=== PATIENT | male | born 1940 | race Caucasian/White ===

== ENCOUNTER 2017-03-01 18:33 | Inpatient (IN) ==
[2017-03-01] MEDS ORDERED: SODIUM CHLORIDE 0.9% 500 ML IV STA (19:39)
[2017-03-01] MEDS ORDERED: ALBUTEROL/IPRATROPIUM 3 ML NEB RESP TX STA (19:39)
[2017-03-01] MEDS ORDERED: ONDANSETRON 4 MG/2 ML VIAL IV STA (19:39)
--- NOTE | 2017-03-01 19:39 | Emergency Department Note ---
INolberto Emily, am scribing for, and in the presence of, Srinath Morillo MD 19: 30. Yisel Buchanan Charles R, MD, personally performed the services described in this documentation, ascribed by Marina Arvizu in my presence, and it is both accurate and complete 938 . Arrival - Arrival Chief Complaint: Extremity Problem Stated Complaint: leg swelling and sob ED Nursing Triage Note: Swelling to bilat lower extremities x 2 weeks - pt states that Dr Griffiths told him to come to ER for evaluation and admission Mode of Arrival: Ambulatory Limitations: No Limitations Source: Patient Time Seen by Provider: 03/01/17 19:00 - History of Present Illness HPI Narrative: Pt is a 76 y/o male who came to ED with c/o swelling in abdomen and lower extremities that started 2 weeks ago. Pt has associated sxs SOB, decreased appetite, but denies weight loss. Pt also has distended abdomen that has been ongoing for months now, per family member. Pt has myelofibrosis and was put on a new medication 2 weeks ago, when all these sxs started and Dr. Pugh added Lasix to help. However, family member notes pt's BP would drop and he would become lightheaded due to anemia. Family member reports calling Dr. Griffiths's office and was told to come to ED to get checked for admissions. Pt lives alone. Onset (ago): week(s) Consistency: constant Severity: moderate Severity scale (1-10): 7 Quality: fullness Allergies/Adverse Reactions: Allergies Allergy/AdvReac Type Severity Reaction Status Date / Time No Known Allergies Allergy Verified 11/26/14 07:37 Home Medications: Home Medications Medication Instructions Recorded Confirmed Type Furosemide Tab [Lasix Tab] 40 mg PO DAILY PRN 03/01/17 03/01/17 History Hydroxyurea 500 mg PO QAM 03/01/17 03/01/17 History Iron,Carbonyl/Ascorbic Acid 1 each PO DAILY W/SUPPER 03/01/17 03/01/17 History [Icar-C Tablet] Multivit-Min/FA/Lutein/Zeaxant 1 each PO QAM 03/01/17 03/01/17 History [Icaps Mv Tablet] Prochlorperazine Tab [Compazine 5 mg PO Q4H PRN 03/01/17 03/01/17 History Tab] Review of System - Review of System 12 point system: reviewed and no additional remarkable complaints except as stated - Review of System Constitutional: Absent: fever Respiratory: Present: respiratory distress (SOB) Cardiovascular: Present: edema (both lower etremities). Absent: chest pain Gastrointestinal: Absent: abdominal pain (distended belly), nausea, vomiting Musculoskeletal: Absent: arm pain, back pain Skin: Absent: rash Neurological: Absent: headache, numbness, confusion Medical,Surgical,& Family Hx - Medical History Other: History of: Miscellaneous Medical Problems (anemia, myelofibrosis) - Surgical History Cardiac Surgeries: Patient Denies: Femoral-Popliteal Bypass Graft, Cardiac Catheterization, Cardiac Surgery, Carotid Endarterectomy, Internal Defibrillator, Vascular Access Devices HEENT Surgeries: Patient denies: Carotid Endarterectomy Abdominal Surgeries: Patient denies: Splenectomy - Social History Smoking Status: Never smoker Frequency of Alcohol Use: None Type of Drug Use: None Marital Status: Single Lives With:: Alone Functional capacity: independent ambulation Exam Vital Signs: Vital Signs Temperature 98.7 F 03/01/17 19:34 Pulse Rate 85 03/01/17 20:05 Respiratory Rate 20 03/01/17 20:05 Blood Pressure 110/51 03/01/17 20:04 O2 Sat by Pulse Oximetry 100 03/01/17 20:05 - General General appearance: alert, in no apparent distress, other (temporal wasting; emaciated) - Head Head exam: Present: atraumatic, normocephalic - Eye Eye exam: Present: PERRL, EOMI, other (sunken orbits) - ENT ENT exam: Present: mucous membranes dry. Absent: mucous membranes moist - Neck Neck exam: Present: full ROM. Absent: tenderness - Chest Chest inspection: Present: symmetric chest wall rise. Absent: tenderness - Respiratory Respiratory exam: Present: rales. Absent: normal lung sounds bilaterally, accessory muscle use - Cardiovascular Cardiovascular exam: Present: tachycardia, normal heart sounds - Abdominal Exam Abdominal exam: Present: soft, distention (3rd spacing) - Extremities Exam Extremities exam: Present: full ROM, pedal edema (+3 in lower extremities). Absent: tenderness - Neurological Exam Neurological exam: Present: alert, oriented X3, CN II-XII intact. Absent: motor sensory deficit - Psychiatric Psychiatric exam: Present: normal affect, normal mood - Skin Skin exam: Present: warm, dry, pallor. Absent: normal color Results - Labs CBC & BMP: 03/01/17 19:43 03/01/17 19:43 Lab Results: I have reviewed the patients labs Labs: Laboratory Tests 03/01/17 19:43 WBC 25.5 H RBC 2.25 L Hgb 6.1 L* Hct 20.0 L MCHC 30.5 L RDW 22.9 H Plt Count 25 L* Lymph % (Auto) 9.6 L Tripp % (Auto) 18.8 H Neut # (Auto) 13.1 H Tripp # (Auto) 4.8 H Laboratory Tests 03/01/17 19:43 Sodium 139 Potassium 3.4 L Chloride 101 Carbon Dioxide 30 Creatinine 1.00 GFR Calculation 76 BUN/Creatinine Ratio 15.00 Calcium 8.3 L Total Bilirubin 2.10 H AST 54 H Alkaline Phosphatase 125 H Troponin I < 0.015 Albumin 3.3 L Globulin 3.8 H Albumin/Globulin Ratio 0.8 L Lipase 262.0 Laboratory Tests 03/01/17 19:43 B-Natriuretic Peptide 147 H Laboratory Tests 03/01/17 19:43 Urine Color Yellow Urine Appearance Clear Urine pH 7.0 Ur Specific [place] 1.008 Urine Protein 30 Urine Blood Negative Urine Nitrate Negative Urine Urobilinogen < 2.0 H Urine Leukocytes Negative Urine RBC 3 Laboratory Tests 03/01/17 19:43 Total Counted 100 Segmented Neutrophils 76 Band Neutrophils 1 Lymphocytes 14 L Monocytes 4 Metamyelocytes 2 Myelocytes 3 Nucleated RBCs 1 Platelet Estimate Decreased Hypochromasia 1+ Microcytosis 1+ - Diagnostic Findings Procedure: Abdominal x-ray: report reviewed by me (Ascites cannot be excluded. Bony changes of the pelvis.), Chest x-ray: report reviewed by me (Bilateral basilar atelectasis. Left-sided pleural effusion.), Ultrasound: report reviewed by me (Venous Doppler of LE BI: 1. No evidence of DVT seen in either lower extremity. 2. Small left Newman's cyst.) Critical Care Time Critical Care Time: Yes Total Critical Care Time: 60 (minutes) Disposition Clinical Impression: Lower extremity edema, Anemia of chronic disease, Splenomegaly, Hyperbilirubinemia, Myelodysplastic disease, Generalized weakness, Ascites Case discussed with: patient, patient's family Disposition: Still a Patient Condition: Stable Time of Disposition: 22:41
[2017-03-01 20:17] LABS: Basophils # 0.2 10*3/uL (0.0-0.2); Basophils % 0.7 % (0.0-0.8); Eosinophils % 0.1 % (0.00-10.9); Immature Granulocytes % 19.5 %; Immature Granulocytes Absolute 4.96 #; Lymphocytes # 2.4 10*3/uL (1.4-4.0); Lymphocytes % 9.6 % (21.2-54.2); Mean Corpuscular HGB Conc 30.5 GM/DL (32-36); Mean Corpuscular Hemoglobin 27 PG (27-34); Mean Corpuscular Volume 88.9 FL (87-102); Monocytes # 4.8 10*3/uL (0.11-0.8); Monocytes % 18.8 % (1.7-12.7); NRBC # 1.54 10*3/uL; Neutrophils # 13.1 10*3/uL (1.4-7.4); Neutrophils % 51.3 % (38.7-73.9); Red Blood Count 2.25 MC/CUMM (3.8-5.5); Red Cell Distribution Width 22.9 % (9.3-17.3); White Blood Count 25.5 T/CUMM (4-12)
[2017-03-01 20:23] LABS: INR 1.1; PT Patient Result 11.8 SECS
[2017-03-01 20:24] LABS: Hemoglobin 6.1 GM/DL (14.0-18.0); Platelet Count 25 T/CUMM (130-400)
[2017-03-01 20:27] LABS: Alanine Aminotransferase 30 U/L (16-61); Albumin 3.3 G/DL (3.4-5.0); Alkaline Phosphatase 125 U/L (45-117); Amylase 66 U/L (25-115); Aspartate Amino Transferase 54 U/L (0-37); Blood Urea Nitrogen 15 MG/DL (7-18); Calcium 8.3 MG/DL (8.5-10.1); Glucose 87 MG/DL (74-106); Osmolality,Calculated 276.5 MOS/KG (273-304); Potassium 3.4 MMOL/L (3.5-5.1); Sodium 139 MMOL/L (136-145); Total Protein 7.1 G/DL (6.4-8.3); Troponin I Only < 0.015 NG/ML (0.00-0.045)
--- NOTE | 2017-03-01 20:31 | Ultrasound Report ---
Bilateral lower extremity venous Doppler with aguirre scale, Spectral Doppler and color-flow analysis performed and interpreted. Indication: Pain and swelling. Scanning over both common femoral veins, superficial femoral veins, greater saphenous veins and popliteal veins demonstrates normal compressibility, color flow, and augmentation. There is a small Newman's cyst on the left. Impression: 1. No evidence of DVT seen in either lower extremity. 2. Small left Newman's cyst. PROCEDURE INTERPRETED AT [facility] DEPARTMENT OF RADIOLOGY Final Report Signed by: Dr. Valeria Brownlee
[2017-03-01] MEDS ORDERED: ONDANSETRON 4 MG/2 ML VIAL ONE (20:51)
--- NOTE | 2017-03-01 20:56 | XRay Report ---
2 view chest. Indication: Shortness of breath. No previous. The heart is normal in size. The pulmonary vasculature is normal. There is atelectasis present at each lung base and a small left pleural effusion. Osseous structures are unremarkable. Impression: Bilateral basilar atelectasis. Left-sided pleural effusion. PROCEDURE INTERPRETED AT [facility] [place] DEPARTMENT OF RADIOLOGY Final Report Signed by: Dr. Valeria Brownlee
--- NOTE | 2017-03-01 20:58 | EKG Report ---
Stationary ECG Study [facility] ER Test Date: 03/01/2017 8:57:43 PM Pat Name: BRONWYN RAMEY Department: Room: Gender: M Science Teacher: : 1940 Requested by: Srinath Martinez Order Number: [id number] Reading MD: KAUSHAL HARDEN Intervals [place] Rate: 88 P: 69 DC: 150 QRS: 22 QRSD: 109 T: 118 QT: 358 QTc: 404 Interpretive Statements SINUS RHYTHM WITH VENTRICULAR PREMATURE COMPLEX MODERATE INTRAVENTRICULAR CONDUCTION DELAY Electronically Signed On 03-02-17 16:37:19 CDT by KAUSHAL HARDEN [email or web address]
--- NOTE | 2017-03-01 20:58 | XRay Report ---
2 view abdomen. Indication: Abdominal swelling. Pleural effusion is seen at the left lung base, and possibly also at the right lung base, with atelectasis. Surgical clips at the GE junction and left pelvis. There is increased haziness over the abdomen. Ascites is a possibility. The bowel gas pattern is within the range of normal. There is an increased trabecular pattern and cortical thickening involving of the bones of the pelvis. This could be from patches disease, metastatic disease, or previous radiation. Impression: Ascites cannot be excluded. Bony changes of the pelvis. PROCEDURE INTERPRETED AT [facility] DEPARTMENT OF RADIOLOGY Final Report Signed by: Dr. Valeria Brownlee
[2017-03-01 21:28] LABS: Apearance,Urine CLEAR (Clear); Bilirubin,Urine Negative (Negative); Blood, Urine Negative (Negative); Glucose,Urine (UA) Negative (Negative); Ketones,Urine Negative (Negative); Nitrite,Urine Negative (Negative); Protein,Urine 30 MG/DL; RBC,Urine 3 /HPF (0-4); Urine Color Yellow (Yellow); Urine Specific Gravity 1.008 (1.001-1.035); Urine Urobilinogen < 2.0 EU/DL (0.2-1.0)
[2017-03-01 22:19] LABS: Band Neutrophils 1 % (0-10); Hypochromasia 1+; Lymphocytes 14 % (20-55); Metamyelocytes 2 %; Microcytosis 1+; Myelocytes 3 %; Nucleated Red Blood Cells 1 (0-5); Platelet Estimate Decreased; Segmented Neutrophils 76 % (50-85); Total Cells Counted 100
[2017-03-02] MEDS ORDERED: diphenhydrAMINE CAP 25 MG CAPSULE PO PRN (00:14)
[2017-03-02] MEDS ORDERED: traMADol 50 MG TABLET PO PRN (00:14)
[2017-03-02] MEDS ORDERED: SODIUM CHLORIDE 0.9% 1,000 ML IV SCH (00:14)
[2017-03-02] MEDS ORDERED: chlorproMAZINE INJ 25 MG in SODIUM CHLORIDE 0.9% 100 ML IV PRN (00:14)
[2017-03-02] MEDS ORDERED: ALUMINUM/MAGNES/SIMETH MAX STR 30 ML UDCUP PO PRN (00:14)
[2017-03-02] MEDS ORDERED: guaiFENesin 200 MG/10 ML UDCUP PO PRN (00:14)
[2017-03-02] MEDS ORDERED: ACETAMINOPHEN 325 MG TABLET PO PRN (00:14)
[2017-03-02] MEDS ORDERED: chlorproMAZINE 25 MG TABLET PO PRN (00:14)
[2017-03-02] MEDS ORDERED: SODIUM CHLORIDE 0.9% 250 ML IV PRN ×2 (00:14→07:49)
[2017-03-02] MEDS ORDERED: PROMETHAZINE INJ 25 MG in SODIUM CHLORIDE 0.9% 50 ML IV PRN (00:14)
[2017-03-02] MEDS ORDERED: MYLANTA/LIDO VISC 2:1 300 ML BOTTLE SWISH/SPIT PRN (00:14)
[2017-03-02] MEDS ORDERED: MAGNESIUM HYDROXIDE SUSP 30 ML UDCUP PO PRN (00:14)
[2017-03-02] MEDS ORDERED: LOPERAMIDE 2 MG CAPSULE PO PRN ×2 (00:14)
[2017-03-02] MEDS ORDERED: chlorproMAZINE INJ 50 MG in SODIUM CHLORIDE 0.9% 100 ML IV PRN (00:14)
[2017-03-02] MEDS ORDERED: PROCHLORPERAZINE 5 MG TABLET PO PRN (00:14)
[2017-03-02] MEDS ORDERED: BENZTROPINE 2 MG/2 ML AMP IV PRN (00:14)
[2017-03-02] MEDS ORDERED: ALBUTEROL/IPRATROPIUM 3 ML NEB RESP TX PRN (00:14)
[2017-03-02] MEDS ORDERED: TEMAZEPAM 7.5 MG CAPSULE PO PRN (00:14)
[2017-03-02] MEDS ORDERED: ALPRAZolam 0.25 MG TABLET PO PRN (00:14)
[2017-03-02] MEDS ORDERED: MYLANTA/LIDO VISC 2:1 300 ML BOTTLE SWISH/SWAL PRN (00:14)
[2017-03-02] MEDS ORDERED: LACTULOSE 20 GM/30 ML UDCUP PO PRN (00:14)
[2017-03-02] MEDS ORDERED: ONDANSETRON 4 MG/2 ML VIAL IV PRN (00:14)
[2017-03-02] MEDS ORDERED: FUROSEMIDE 40 MG TABLET PO PRN (00:14)
[2017-03-02 02:16] LABS: INR 1.1; PT Patient Result 12.1 SECS
[2017-03-02 02:17] LABS: Albumin 2.9 G/DL (3.4-5.0); Bilirubin,Total 2.2 MG/DL (0.2-1.0); Calcium 8.4 MG/DL (8.5-10.1); Magnesium 2.2 MG/DL (1.8-2.4); Osmolality,Calculated 280.3 MOS/KG (273-304); Potassium 3.3 MMOL/L (3.5-5.1); Total Protein 6.3 G/DL (6.4-8.3); Uric Acid 7.5 MG/DL (3.5-7.2)
[2017-03-02 02:27] LABS: Basophils # 0.2 10*3/uL (0.0-0.2); Basophils % 0.8 % (0.0-0.8); Eosinophils % 0.1 % (0.00-10.9); Immature Granulocytes % 21.2 %; Immature Granulocytes Absolute 4.91 #; Lymphocytes # 2.6 10*3/uL (1.4-4.0); Lymphocytes % 11.1 % (21.2-54.2); Mean Corpuscular HGB Conc 30.8 GM/DL (32-36); Mean Corpuscular Hemoglobin 27 PG (27-34); Mean Corpuscular Volume 88.9 FL (87-102); Monocytes # 3.2 10*3/uL (0.11-0.8); NRBC # 1.88 10*3/uL; Neutrophils # 12.2 10*3/uL (1.4-7.4); Neutrophils % 52.8 % (38.7-73.9); Red Cell Distribution Width 23.1 % (9.3-17.3); White Blood Count 23.1 T/CUMM (4-12)
[2017-03-02 04:03] LABS: Platelet Count 22 T/CUMM (130-400)
[2017-03-02 04:06] LABS: Hemoglobin 7.4 GM/DL (14.0-18.0)
[2017-03-02 05:25] LABS: Anisocytosis 2+; Band Neutrophils 15 % (0-10); Lymphocytes 26 % (20-55); Macrocytosis 1+; Metamyelocytes 5 %; Microcytosis 1+; Myelocytes 3 %; Nucleated Red Blood Cells 5 (0-5); Platelet Estimate Decreased; Polychromasia 2+; Segmented Neutrophils 34 % (50-85); Total Cells Counted 100
[2017-03-02] MEDS ORDERED: FUROSEMIDE 20 MG/2 ML VIAL IV SCH (08:00)
[2017-03-02] MEDS ORDERED: HYDROXYUREA 500 MG CAPSULE PO SCH (09:00)
[2017-03-02] MEDS: PANTOPRAZOLE 40 MG VIAL IV SCH (09:47)
[2017-03-02] MEDS: MULTIVITAMIN (OCUVITE) TABLET PO SCH (09:48)
--- NOTE | 2017-03-02 10:02 | Oncology History&Physical ---
History of Present Illness Chief complaint: Severe prostration and weakness, multifactorial History of present illness: Mr. Portillo is a 76 year old male Mr. Portillo has a history of myelodysplastic syndrome first diagnosed in August 2011. He was initially treated with hydroxyurea and tested for Ricardo 2 positivity. He is Ricardo 2 positive and he has been treated with Jakafi. He did not tolerate it well and it appeared to be less effective but I really think that what happened was the patient's myelodysplastic syndrome has worsened and that he simply has been noncompliant with his medications and and he is blaming them for side effects or actually progression of disease. Lab work in my office on February 27, 2017 included a white cell count of 21,800 with an ANC of 15,100 and a hemoglobin of 8.2. His platelet count was 23,000. I have given him information on Vidaza but so far, he is has repeatedly declined to take it. I have explained to him that there is not much else to offer at this point. He has documented massive splenomegaly. He complains of increasing abdominal fullness that is in my opinion due to the splenomegaly. He has had progressive edema and I have attempted to go up on his Lasix. He is currently on 40 mg p.o. twice daily. His edema was improving but when he saw his family practitioner she sent him to the emergency room anyway. Past medical history: Allergies: No known allergies The patient has been repeatedly told to bring his medications with him and he has repeatedly failed to do so. He has known significant COPD. He also has emaciation and cachexia. He also has a history of vertigo, GERD and macular degeneration. Social history: He is at least a former smoker and I am not sure that he does not continue to smoke. Family history is negative for myelodysplastic syndrome. It is strongly positive for coronary artery disease and stroke and his father had prostate cancer. Review of systems: General: Positive for fatigue but he has had a weight gain of about 7 pounds in the last 4-6 weeks. This may be due to increase in edema however. He has not had fever. Eyes: Positive for decreased visual acuity due to macular degeneration. ENT: Negative for chronic sinusitis or upper airway infections, but positive for some generalized mild mouth irritation secondary to hydroxyurea. Pulmonary: Positive for dyspnea at rest and with exertion and positive for COPD. Negative for hemoptysis. Positive for frequent respiratory infections. Cardiovascular:Positive for vertigo but negative for myocardial infarct. The patient has had progressive confusion and may have cerebrovascular insufficiency. GI: Positive for left upper quadrant abdominal pain secondary to massive splenomegaly. Negative for chronic constipation, diarrhea or upper or lower GI bleeding. : Negative for kidney stones, kidney infections and negative for prostate disorders. Musculoskeletal: Positive for mild arthritis in the hands and back and posture for more generalized muscle weakness. Neurologic: Negative for seizures, convulsions or paralysis. He has had weak spells but I do not think they are neurologic in origin. Psychiatric: The patient does have a component of memory loss although some of his apparent memory loss is probably the patient being noncompliant. Physical examination: General: The patient is acutely and chronically ill. Eyes: Normal lids and conjunctivae. ENT: His oral mucosa and pharynx are normal. His hearing is normal. His trachea is midline. Lungs/chest: He has no chest wall pain. He has coarse breath sounds throughout his lung bhardwaj indicating fairly severe COPD with only a very slight prolongation of the expiratory phase of respiration. Cardiovascular: His heart rhythm is regular without murmur, gallop or rub. There is no jugular venous distention, clubbing, cyanosis or edema. I hear no carotid bruits. Abdomen: He has massive splenomegaly with the spleen extending to the pelvic brim and crossing the midline slightly. He is tender over this area. Musculoskeletal: His gait is unstable. He walks with a cane. Range of motion of his back appears relatively normal however. He has moderate degenerative arthritis of the extremities, particularly his hands. There is no focal muscle atrophy or bone or joint deformity. Neurologic: Cranial nerves II through XII intact. There are no focal neurologic deficits. Impression: Progressively worsening edema that is probably multifactorial including splenomegaly and liver dysfunction related to myelodysplastic syndrome. 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 Thrombocytopenia secondary to myelodysplastic syndrome. COPD. Iron deficiency. Moderate degenerative arthritis. Hypokalemia This weekend we will diurese the patient and we will correct his hypokalemia. It is my opinion that we might have been able to avoid this hospital stay if he had been more compliant but this may give us an opportunity to start him on Vidaza if he elects to take it. It is my opinion that the patient's long-term prognosis is poor. He has had long-standing myelodysplastic syndrome, probably longer than I have been following him. In addition, he has some complete compliance problems that I think are going to continue to complicate his treatment. He does not take oral medications on a regular basis. It would be possible to control this more if we do go to 5 days and since it is given parenterally. Home Medications Medication Instructions Recorded Confirmed Type Furosemide Tab [Lasix Tab] 40 mg PO DAILY PRN 03/01/17 03/02/17 History Hydroxyurea 500 mg PO QAM 03/01/17 03/02/17 History Iron,Carbonyl/Ascorbic Acid 1 each PO DAILY W/SUPPER 03/01/17 03/02/17 History [Icar-C Tablet] Multivit-Min/FA/Lutein/Zeaxant 1 each PO BID 03/01/17 03/02/17 History [Icaps Mv Tablet] Prochlorperazine Tab [Compazine 5 mg PO Q4H PRN 03/01/17 03/02/17 History Tab] Allergies Allergy/AdvReac Type Severity Reaction Status Date / Time No Known Allergies Allergy Verified 11/26/14 07:37 Medical,Surgical,& Family Hx - Medical History Other: History of: Cancer (MDS), Miscellaneous Medical Problems (anemia, myelofibrosis) - Surgical History Cardiac Surgeries: Patient Denies: Femoral-Popliteal Bypass Graft, Cardiac Catheterization, Cardiac Surgery, Carotid Endarterectomy, Internal Defibrillator, Vascular Access Devices Thoracic Surgeries: Patient denies;: Organ Transplant HEENT Surgeries: Patient denies: Carotid Endarterectomy Abdominal Surgeries: Patient denies: Splenectomy Reproductive Surgeries: Patient denies;: Genitourinary Surgery - Social History Smoking Status: Former smoker Frequency of Alcohol Use: None Type of Drug Use: None Exam - Constitutional Vitals: Period Temp Pulse Resp BP Sys/Parker Pulse Ox Last 24 Hr 97.6 F-99.1 F 83-94 18-22 93-128/50-60 94-100 Results - Labs CBC & BMP: 03/02/17 00:59 03/02/17 00:59
--- NOTE | 2017-03-02 10:36 | XRay Report ---
2 view chest. Indication: Shortness of breath. Comparison: Yesterday's exam. The heart is normal in size. Atelectasis is present in each lung base. There increasing left-sided pleural effusion. Hazy opacity over the abdomen suggests the possibility of ascites. Impression: Worsening left-sided pleural effusion. Bilateral basilar atelectasis. Suspected ascites. PROCEDURE INTERPRETED AT [facility] DEPARTMENT OF RADIOLOGY Final Report Signed by: Dr. Valeria Brownlee
--- NOTE | 2017-03-02 12:43 | ECHO Report ---
Maurilio Portillo 03/02/2017 Exam Date: 11:02 Referring Physician: nat Huber Technologist: ADIA WILL Age: 76 Ht (in): 70 Wt (lb): 139 MExam Location: [facility] Gender: Echo [id number]: Shortness of breath, Anemia, MyelofIndications:ibrosis, Edema, Apparent CHF BP: 114 / 56 HR: 80 SinusRhythm: FairTechnical Quality: IMPRESSIONS 1. Left ventricle is normal size and systolic function ejection fraction 55%. Wall thickness is normal. 2. Left atrium is mildly dilated. 3. Right atrium is moderately dilated. 4. Right ventricle is mildly dilated. 5. Sclerotic mitral valve with mild to moderate regurgitation. 6. Sclerotic aortic valve without stenosis and only trace insufficiency at worst. 7. Mild to moderate tricuspid valve regurgitation. 8. Moderately elevated right-sided pressures. 9. No pericardial effusion but a pleural effusion is present. MEASUREMENTS (Male / Female) Normal Values 2D ECHO LV Diastolic Diameter PLAX 4.8 cm 4.2 - 5.9 / 3.9 - 5.3 cm LV Systolic Diameter PLAX 2.7 cm LV Fractional Shortening PLAX 43.1 % IVS Diastolic Thickness 0.6 cm 0.6 - 1.0 / 0.6 - 0.9 cm LVPW Diastolic Thickness 0.7 cm 0.6 - 1.0 / 0.6 - 0.9 cm RV Internal Dim ED PLAX 3.3 cm Aortic Root Diameter 3.7 cm LA Systolic Diameter LX 4.4 cm 3.0 - 4.0 / 2.7 - 3.8 cm DOPPLER TR Peak Velocity 334.0 cm/s TR Peak Gradient 44.6 mmHg FINDINGS Left Ventricle Normal left ventricular cavity size. Normal left ventricular wall thickness. Left ventricular ejection fraction is estimated at 55 %. Right Ventricle Mildly increased right ventricular size. Right Atrium Moderately increased right atrial size. Left Atrium The left atrium is mildly enlarged. Mitral Valve Mitral valve sclerosis. Mild-moderate mitral valve regurgitation. Aortic Valve Aortic valve is tricusp with sclerosis but without stenosis. Trace aortic valve regurgitation. Tricuspid Valve Thickened tricuspid valve. [id number] tricuspid valve regurgitation. Tricuspid regurgitation velocities suggest a PAP of 50- 55 mmHg. Pulmonic Valve Morphologically normal pulmonic valve. Trace pulmonary valve regurgitation. Pericardium Normal pericardium without effusion. There is pleural effusion present. Aorta Normal ascending aorta dimension. Bert Spear MD (Electronically Signed) 02 March 2017 Final Date: 12:42
[2017-03-02] MEDS: DEXT 5% NACL 0.45% KCL 20 MEQ 20 MEQ/1,000 ML BAG IV SCH ×2 (17:11→17:35)
[2017-03-02] MEDS: FUROSEMIDE 20 MG/2 ML VIAL IV SCH (17:25)
[2017-03-02] MEDS: IRON (CARBONYL)/VIT C/B12/FA TABLET PO SCH (17:28)
[2017-03-03 02:46] LABS: Basophils # 0.2 10*3/uL (0.0-0.2); Eosinophils % 0.1 % (0.00-10.9); Hematocrit 30.4 VOL% (42.0-52.0); Hemoglobin 9.4 GM/DL (14.0-18.0); Lymphocytes # 3.5 10*3/uL (1.4-4.0); Lymphocytes % 14.5 % (21.2-54.2); Mean Corpuscular HGB Conc 30.9 GM/DL (32-36); Mean Corpuscular Hemoglobin 27 PG (27-34); Mean Corpuscular Volume 87.6 FL (87-102); Monocytes # 3.3 10*3/uL (0.11-0.8); Monocytes % 13.5 % (1.7-12.7); NRBC # 2.25 10*3/uL; Neutrophils # 12.5 10*3/uL (1.4-7.4); Neutrophils % 51.9 % (38.7-73.9); Red Blood Count 3.47 MC/CUMM (3.8-5.5); Red Cell Distribution Width 21.7 % (9.3-17.3); White Blood Count 24.2 T/CUMM (4-12)
[2017-03-03 03:00] LABS: Platelet Count 17 T/CUMM (130-400)
[2017-03-03 03:38] LABS: Albumin 2.8 G/DL (3.4-5.0); Bilirubin,Total 2.7 MG/DL (0.2-1.0); Osmolality,Calculated 281.3 MOS/KG (273-304); Potassium 3.3 MMOL/L (3.5-5.1); Total Protein 6.2 G/DL (6.4-8.3)
[2017-03-03 04:37] LABS: Band Neutrophils 6 % (0-10); Eosinophils 1 % (0-10); Lymphocytes 22 % (20-55); Metamyelocytes 3 %; Myelocytes 3 %; Nucleated Red Blood Cells 8 (0-5); Total Cells Counted 100
[2017-03-03 04:38] LABS: Anisocytosis 2+; Microcytosis 2+; Platelet Estimate Decreased
[2017-03-03 04:39] LABS: Atypical Lymphocytes 1+; Polychromasia 1+
[2017-03-03 04:40] LABS: Elliptocytes Few
[2017-03-03 04:41] LABS: Segmented Neutrophils 49 % (50-85)
[2017-03-03] MEDS: DEXT 5% NACL 0.45% KCL 20 MEQ 20 MEQ/1,000 ML BAG IV SCH (07:12)
[2017-03-03] MEDS: MULTIVITAMIN (OCUVITE) TABLET PO SCH (08:43)
[2017-03-03] MEDS: FUROSEMIDE 20 MG/2 ML VIAL IV SCH ×2 (08:45→16:30)
[2017-03-03] MEDS: PANTOPRAZOLE 40 MG VIAL IV SCH (08:47)
[2017-03-03] MEDS ORDERED: POTASSIUM CHLORIDE 20 MEQ TABLET PO ONE (11:55)
--- NOTE | 2017-03-03 16:06 | Oncology Progress Note ---
Assessment and Plan (1) Myelodysplastic disease Status: Acute Assessment and plan: Myeloid neoplasm present since ~2011. JAK2+ with splenomegaly, treated previously with Hydroxyurea and Jakafi. - questionable compliance with either medication - now planning transition to Vidaza - will transfuse 1 unit plts today for thrombocytopenia with mild nose bleeding Current Visit: Yes (2) Thrombocytopenia Status: Acute Assessment and plan: due to myeloid neoplasm - transfuse 1 unit plts today Current Visit: Yes (3) Lower extremity edema Status: Acute Assessment and plan: Improving on 40 mg IV Lasix BID. Continue diuresis Current Visit: Yes (4) Generalized weakness Status: Acute Assessment and plan: Chronically debilitated from his hematologic illness. - lives alone but has great support from both his sons. - will work on symptomatic care with diuresis and try melatonin tonight to help sleep Current Visit: Yes (5) Hypokalemia Status: Acute Assessment and plan: due to diuretic. Replacing 40 mEq PO today Current Visit: Yes Oncology Subjective PN Interval history: States the edema in his legs is improving but he continues to feel poorly. Reports he has not slept in days. Has little appetite. Has a spontaneous nose- bleed this am and this seems to occurs about 2-3 times per week. Exam - Constitutional Vitals: Period Temp Pulse Resp BP Sys/Parker Pulse Ox Last 24 Hr 97.6 F-98.6 F 60-84 16-20 100-126/50-63 91-94 Exam: elderly, chronically ill, cachectic white male lying back in bed comfortably - Respiratory Respiratory exam: Present: CTAB. Absent: accessory muscle use - Cardiovascular Cardiovascular exam: Present: RRR. Absent: JVD - GI/Abdominal GI/Abdominal exam: Present: distended, other (massive splenomegaly with spleen extending nearly to umbilicus, ~11 cm from costal margin) - Skin Skin exam: Present: warm, dry Results - Labs CBC & BMP: 03/03/17 01:49 03/03/17 01:49
[2017-03-03] MEDS: IRON (CARBONYL)/VIT C/B12/FA TABLET PO SCH (16:36)
[2017-03-03] MEDS: MELATONIN 3 MG TABLET PO SCH (22:00)
[2017-03-04 05:57] LABS: Basophils # 0.2 10*3/uL (0.0-0.2); Basophils % 0.8 % (0.0-0.8); Eosinophils % 0.1 % (0.00-10.9); Hematocrit 31.6 VOL% (42.0-52.0); Hemoglobin 9.8 GM/DL (14.0-18.0); Immature Granulocytes % 19.6 %; Immature Granulocytes Absolute 4.74 #; Lymphocytes # 1.8 10*3/uL (1.4-4.0); Lymphocytes % 7.3 % (21.2-54.2); Mean Corpuscular Hemoglobin 28 PG (27-34); Mean Corpuscular Volume 88.5 FL (87-102); Monocytes # 4.4 10*3/uL (0.11-0.8); Monocytes % 18.1 % (1.7-12.7); NRBC # 1.51 10*3/uL; Neutrophils # 13.1 10*3/uL (1.4-7.4); Neutrophils % 54.1 % (38.7-73.9); Red Blood Count 3.57 MC/CUMM (3.8-5.5); Red Cell Distribution Width 21.7 % (9.3-17.3); White Blood Count 24.2 T/CUMM (4-12)
[2017-03-04 06:05] LABS: Platelet Count 29 T/CUMM (130-400)
[2017-03-04 06:35] LABS: Albumin 2.7 G/DL (3.4-5.0); Bilirubin,Total 3.3 MG/DL (0.2-1.0); Calcium 8.1 MG/DL (8.5-10.1); Osmolality,Calculated 287.1 MOS/KG (273-304); Potassium 3.4 MMOL/L (3.5-5.1); Total Protein 6.2 G/DL (6.4-8.3)
[2017-03-04 06:57] LABS: Band Neutrophils 11 % (0-10); Hypochromasia 2+; Lymphocytes 8 % (20-55); Metamyelocytes 2 %; Myelocytes 2 %; Nucleated Red Blood Cells 11 (0-5); Platelet Estimate Decreased; Polychromasia Few; Segmented Neutrophils 56 % (50-85); Total Cells Counted 100
[2017-03-04] MEDS: MULTIVITAMIN (OCUVITE) TABLET PO SCH (10:13)
[2017-03-04] MEDS: PANTOPRAZOLE 40 MG VIAL IV SCH (10:13)
[2017-03-04] MEDS: FUROSEMIDE 20 MG/2 ML VIAL IV SCH ×2 (10:15→17:06)
--- NOTE | 2017-03-04 11:33 | Oncology Progress Note ---
Assessment and Plan (1) Myelodysplastic disease Status: Acute Assessment and plan: Myeloid neoplasm present since ~2011. JAK2+ with splenomegaly, treated previously with Hydroxyurea and Jakafi. - questionable compliance with either medication - now planning transition to Vidaza - responded well to platelet transfusion yesterday. Will continue diuresis and can potentially discharge tomorrow to follow up in clinic Current Visit: Yes (2) Thrombocytopenia Status: Acute Assessment and plan: due to myeloid neoplasm - responded well to 1 unit transfusion Current Visit: Yes (3) Lower extremity edema Status: Acute Assessment and plan: Improving on 40 mg IV Lasix BID. Continue diuresis Current Visit: Yes (4) Generalized weakness Status: Acute Assessment and plan: Chronically debilitated from his hematologic illness. - lives alone but has great support from both his sons. - continue melatonin and diuresis. Will change time of afternoon dose to 4pm so that he will hopefully sleep better. Current Visit: Yes (5) Hypokalemia Status: Acute Assessment and plan: due to diuretic. Replacing 80 mEq PO today Current Visit: Yes Oncology Subjective PN Interval history: Feeling ok this am. Still did not sleep but ~2 hours last night despite the 6mg melatonin. Generally refuses the Restoril. Had a good appetite and ate well yesterday. Denies abdominal pain. Had low grade fever yesterday with platelet transfusion but felt otherwise fine. Denies chest pain, dyspnea, palpitations, abdominal pain. Feels the swelling in his legs is improving Exam - Constitutional Vitals: Period Temp Pulse Resp BP Sys/Parker Pulse Ox Last 24 Hr 96.9 F-100.6 F 77-105 16-20 114-141/56-63 92-98 Exam: Elderly, chronically ill, cachectic white male lying back in bed comfortably - Eye Eye Exam: Absent: periorbital swelling, scleral icterus - ENT ENT exam: Present: normal oropharynx - Respiratory Respiratory exam: Present: CTAB. Absent: accessory muscle use - Cardiovascular Cardiovascular exam: Present: other (has a regular rhythm with occasional PVC) - GI/Abdominal GI/Abdominal exam: Present: distended (due to massive splenomegaly) - Skin Skin exam: Present: warm, dry Results - Labs CBC & BMP: 03/04/17 05:33 03/04/17 05:33
[2017-03-04] MEDS: DOCUSATE SODIUM 100 MG CAPSULE PO PRN ×2 (13:26→21:28)
[2017-03-04] MEDS: POTASSIUM CHLORIDE 20 MEQ TABLET PO SCH ×2 (13:26→17:06)
[2017-03-04] MEDS: IRON (CARBONYL)/VIT C/B12/FA TABLET PO SCH (17:06)
[2017-03-04] MEDS: MELATONIN 3 MG TABLET PO SCH (21:26)
[2017-03-05 05:52] LABS: Basophils # 0.2 10*3/uL (0.0-0.2); Hematocrit 32.3 VOL% (42.0-52.0); Hemoglobin 9.7 GM/DL (14.0-18.0); Immature Granulocytes % 21.6 %; Immature Granulocytes Absolute 4.87 #; Lymphocytes % 13.4 % (21.2-54.2); Mean Corpuscular Hemoglobin 27 PG (27-34); Mean Corpuscular Volume 89.7 FL (87-102); Monocytes # 2.2 10*3/uL (0.11-0.8); Monocytes % 9.7 % (1.7-12.7); NRBC # 1.21 10*3/uL; Neutrophils # 12.2 10*3/uL (1.4-7.4); Neutrophils % 54.3 % (38.7-73.9); Red Cell Distribution Width 21.9 % (9.3-17.3); White Blood Count 22.6 T/CUMM (4-12)
[2017-03-05 06:00] LABS: Platelet Count 22 T/CUMM (130-400)
[2017-03-05 06:38] LABS: Albumin 2.8 G/DL (3.4-5.0); Bilirubin,Total 2.2 MG/DL (0.2-1.0); Calcium 7.9 MG/DL (8.5-10.1); Osmolality,Calculated 287.3 MOS/KG (273-304); Potassium 3.3 MMOL/L (3.5-5.1); Total Protein 6.5 G/DL (6.4-8.3)
[2017-03-05 06:48] LABS: Band Neutrophils 11 % (0-10); Lymphocytes 11 % (20-55); Myelocytes 1 %; Nucleated Red Blood Cells 13 (0-5); Polychromasia Slight; Promyelocytes 1 %; Segmented Neutrophils 64 % (50-85); Target Cells Slight; Total Cells Counted 100
[2017-03-05 06:49] LABS: Platelet Estimate Decreased
--- NOTE | 2017-03-05 08:12 | Oncology Progress Note ---
Oncology Subjective PN Interval history: Mr. Portillo is basically admitted for progressive debilitation due to myelodysplastic syndrome. Problems with which we are currently dealing include: Progressively worsening edema that is probably multifactorial including splenomegaly and liver dysfunction related to myelodysplastic syndrome. He has elected to proceed with Vidaza so I am ordering today. He feels better and wants to go home. The dose of Vidaza will be 135 mg subcu daily for 5 days. 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 Hemoglobin 9.7 today following transfusion. Thrombocytopenia secondary to myelodysplastic syndrome. Platelet count 22,000 today. White cell count 22,600 with an absolute neutrophil count of 12,200. COPD. His COPD has improved. He has faint wheezing on expiration. Heart murmur: His 2D echocardiogram done March 02, 2017 demonstrates mitral valve sclerosis with regurgitation as well as aortic valve sclerosis without stenosis but with trace insufficiency. There is also tricuspid valve regurgitation. Moderate degenerative arthritis. Malnutrition, emaciation and cachexia:Serum calcium 7.9 with a serum albumin that is low at 2.8 Hypokalemia Potassium 3.3 today. On physical examination, his skin color is better. He is oriented and alert today. He has faint wheezing on expiration with a much shorter expiratory phase of respiration than on admission. His heart rhythm is regular with a grade 4/6 holosystolic murmur heard best at the apex and a very short 1/6 to 2/ 6 diastolic decrescendo murmur in the second right intercostal space. Exam - Constitutional Vitals: Period Temp Pulse Resp BP Sys/Parker Pulse Ox Last 24 Hr 97.5 F-98.4 F 78-86 17-22 107-121/57-59 89-94 Results - Labs CBC & BMP: 03/05/17 04:34 03/05/17 04:34
[2017-03-05] MEDS: MULTIVITAMIN (OCUVITE) TABLET PO SCH (09:44)
[2017-03-05] MEDS: GRANISETRON 1 MG/1 ML VIAL IV SCH (09:44)
[2017-03-05] MEDS: FUROSEMIDE 20 MG/2 ML VIAL IV SCH ×2 (09:44→17:08)
[2017-03-05] MEDS: PANTOPRAZOLE 40 MG VIAL IV SCH (09:45)
[2017-03-05] MEDS: STERILE WATER SUBCUT SCH (11:43)
[2017-03-05] MEDS: AZACITIDINE SUBCUT SCH (11:43)
[2017-03-05] MEDS: IRON (CARBONYL)/VIT C/B12/FA TABLET PO SCH (17:08)
[2017-03-05] MEDS: MELATONIN 3 MG TABLET PO SCH (21:26)
[2017-03-05] MEDS: DOCUSATE SODIUM 100 MG CAPSULE PO PRN (21:26)
[2017-03-06 06:26] LABS: Basophils # 0.2 10*3/uL (0.0-0.2); Hematocrit 32.6 VOL% (42.0-52.0); Hemoglobin 9.8 GM/DL (14.0-18.0); Immature Granulocytes % 21.8 %; Immature Granulocytes Absolute 5.01 #; Lymphocytes # 3.2 10*3/uL (1.4-4.0); Lymphocytes % 13.9 % (21.2-54.2); Mean Corpuscular HGB Conc 30.1 GM/DL (32-36); Mean Corpuscular Hemoglobin 27 PG (27-34); Mean Corpuscular Volume 89.8 FL (87-102); Monocytes # 1.7 10*3/uL (0.11-0.8); Monocytes % 7.6 % (1.7-12.7); NRBC # 1.01 10*3/uL; Neutrophils # 12.8 10*3/uL (1.4-7.4); Neutrophils % 55.7 % (38.7-73.9); Red Blood Count 3.63 MC/CUMM (3.8-5.5); Red Cell Distribution Width 21.4 % (9.3-17.3)
[2017-03-06 07:00] LABS: Platelet Count 24 T/CUMM (130-400)
[2017-03-06 07:09] LABS: Albumin 2.8 G/DL (3.4-5.0); Bilirubin,Total 2.1 MG/DL (0.2-1.0); Osmolality,Calculated 286.3 MOS/KG (273-304); Potassium 3.8 MMOL/L (3.5-5.1); Total Protein 6.4 G/DL (6.4-8.3)
[2017-03-06 07:11] LABS: Band Neutrophils 17 % (0-10); Lymphocytes 11 % (20-55); Myelocytes 3 %; Nucleated Red Blood Cells 6 (0-5); Promyelocytes 2 %; Segmented Neutrophils 55 % (50-85); Total Cells Counted 100
[2017-03-06 07:12] LABS: Hypochromasia 1+; Platelet Estimate Decreased; Polychromasia 1+; Target Cells Slight
--- NOTE | 2017-03-06 07:40 | Oncology Progress Note ---
Oncology Subjective PN Interval history: Progressively worsening edema that is probably multifactorial including splenomegaly and liver dysfunction related to myelodysplastic syndrome. 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 Thrombocytopenia secondary to myelodysplastic syndrome. COPD. Iron deficiency. Moderate degenerative arthritis. Hypokalemia Mr. Portillo has a history of myelodysplastic syndrome first diagnosed in August 2011. He was initially treated with hydroxyurea and tested for Ricardo 2 positivity. He is Ricardo 2 positive and he has been treated with Jakafi. He did not tolerate it well and it appeared to be less effective but I really think that what happened was the patient's myelodysplastic syndrome has worsened and that he simply has been noncompliant with his medications and and he is blaming them for side effects or actually progression of disease. Mr. Portillo was basically admitted for progressive debilitation due to myelodysplastic syndrome in combination with edema that was actually improving on Lasix. Problems with which we are currently dealing include: Progressively worsening edema that is probably multifactorial including splenomegaly and liver dysfunction related to myelodysplastic syndrome. Now improved. myelodysplastic syndrome: He has elected to proceed with Vidaza so I am ordering today. He feels better and wants to go home. The dose of Vidaza will be 135 mg subcu daily for 5 days.He received day #1 of 5 days or yesterday. 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 Hemoglobin 9.8 today following transfusion. Thrombocytopenia secondary to myelodysplastic syndrome. Platelet count 24,000 today. White cell count 23,000 with an absolute neutrophil count of 12,800. COPD. His COPD has improved. He has faint wheezing on expiration. Heart murmur: His 2D echocardiogram done March 02, 2017 demonstrates mitral valve sclerosis with regurgitation as well as aortic valve sclerosis without stenosis but with trace insufficiency. There is also tricuspid valve regurgitation. Moderate degenerative arthritis. Malnutrition, emaciation and cachexia:Serum Calcium 8.0 with serum albumin of 2.8. Hypokalemia Potassium 3.8 today. He remains extremely debilitated due to the fact that he has a long-term myelodysplastic syndrome and has been through treatments to include hydroxyurea and Jakafi. He has now been started on Vidaza. At least initially, plan to give it to him at a dose of 135 mg subcu daily for 5 days. It can be given for 7 days but he has been heavily pretreated. My plan is to repeat this chemotherapy every 4 weeks. We will plan to give the next dose at my office if at all possible, starting tomorrow and completing it March 09. Exam - Constitutional Vitals: Period Temp Pulse Resp BP Sys/Parker Pulse Ox Last 24 Hr 97.7 F-99.2 F 66-92 18-20 106-123/46-62 90-96 Results - Labs CBC & BMP: 03/06/17 04:41 03/06/17 04:41
--- NOTE | 2017-03-06 07:53 | Consultation ---
Assessment and Plan (1) Generalized weakness Status: Acute Assessment and plan: 03/06/2017: Patient's appetite is apparently improving according to his son. Will check pre-albumin. I have encouraged him to increase his intake and will ask dietitian see him for food choices. Current Visit: Yes (2) Myelodysplastic disease Status: Chronic Current Visit: Yes (3) Splenomegaly Status: Chronic Current Visit: Yes History of Present Illness - Data of Consult Patient: new to practice Consult date: 03/06/17 Requesting Physician: Bert Pugh - Consult Narrative History of present illness: Mr. Portillo is a 76 year old male with history of myelodysplastic syndrome. Patient has developed increasing swelling in his lower extremities and some increase in his fatigue. He was noted to have significant anemia and thrombocytopenia. Patient denies any pain except for some discomfort in both his lower extremities. He had venous Dopplers performed on 02/23/2017 which showed no evidence of DVT. Patient has massive splenomegaly and also hepatomegaly related to his myelodysplastic syndrome. His appetite has been poor according to his son. He denies any nausea vomiting is not seen any blood in his stool. He was started on Vidaza yesterday. CC: Bert Pugh MD Weakness and lower extremity swelling. - Home Medications and Allergies Home Medications: Home Medications Medication Instructions Recorded Confirmed Type Furosemide Tab [Lasix Tab] 40 mg PO DAILY PRN 03/01/17 03/02/17 History Hydroxyurea 500 mg PO QAM 03/01/17 03/02/17 History Iron,Carbonyl/Ascorbic Acid 1 each PO DAILY W/SUPPER 03/01/17 03/02/17 History [Icar-C Tablet] Multivit-Min/FA/Lutein/Zeaxant 1 each PO BID 03/01/17 03/02/17 History [Icaps Mv Tablet] Prochlorperazine Tab [Compazine 5 mg PO Q4H PRN 03/01/17 03/02/17 History Tab] Allergies/Adverse Reactions: Allergies Allergy/AdvReac Type Severity Reaction Status Date / Time No Known Allergies Allergy Verified 11/26/14 07:37 - Constitutional Constitutional: Present: anorexia, weakness, weight loss - EENT Eyes: Absent: blurry vision, loss of vision Ears: Absent: ear pain Nose, mouth and throat: Absent: dysphagia, hoarseness, nasal congestion, sinus pressure - Cardiovascular Cardiovascular: Absent: chest pain at rest, diaphoresis, dyspnea, orthopnea, palpitations, PND - Respiratory Respiratory: Absent: cough - Gastrointestinal Gastrointestinal: Present: as per HPI, abdominal pain, bloating. Absent: diarrhea, hematochezia, melena, nausea, vomiting - Genitourinary Genitourinary: Absent: dysuria, hematuria, urinary frequency - Musculoskeletal Musculoskeletal: Absent: back pain, muscle cramps - Neurological Neurological: Absent: confusion, focal weakness, numbness, paresthesias - Psychiatric Psychiatric: Absent: confusion - Endocrine Endocrine: Present: fatigue. Absent: polydipsia, polyphagia - Hematologic/Lymphatic Hematologic/Lymphatic: Present: easy bleeding, easy bruising Medical,Surgical,& Family Hx - Medical History Other: History of: Cancer (MDS), Miscellaneous Medical Problems (anemia, myelofibrosis) - Surgical History Cardiac Surgeries: Patient Denies: Femoral-Popliteal Bypass Graft, Cardiac Catheterization, Cardiac Surgery, Carotid Endarterectomy, Internal Defibrillator, Vascular Access Devices Thoracic Surgeries: Patient denies;: Organ Transplant HEENT Surgeries: Patient denies: Carotid Endarterectomy Abdominal Surgeries: Surgical HX of: Hernia Repair Patient denies: Splenectomy Reproductive Surgeries: Patient denies;: Genitourinary Surgery Orthopedic Surgeries: Surgical HX of;: Total Knee Replacement Additional Surgical History: Pilonidal cyst resection - Family History Family History: Reports;: Family Heart Disease (Patient had brother of sudden . His mother of heart disease), Family Stroke (Patient's father of a stroke in several other family members with stro) - Social History Smoking Status: Former smoker Frequency of Alcohol Use: None Type of Drug Use: None Exam - Constitutional Vitals: Period Temp Pulse Resp BP Sys/Parker Pulse Ox Last 24 Hr 97.7 F-99.2 F 66-92 18-20 106-123/46-62 90-96 Exam: General: Objective patient is a thin white male who is awake and alert and able to give good history. He is emaciated. HEENT: Pupils equal and reactive to light. Patent nares and airway Neck: No meningismus, adenopathy, thyromegaly. There are no auscultated carotid bruits. Cardiovascular: Regular rhythm. With a 2-3/6 systolic ejection murmur at apex. Chest: Clear to auscultation without rales rhonchi wheezes. Abdomen: Patient is noted to have massive splenomegaly and has hepatomegaly as well. Liver edge is palpable 3 fingerbreadths below right costal margin. His bowel sounds were considered normal. Neuro: Cranial nerves intact and DTRs and strength symmetric in all extremities. Dermatologic: No evidence of abnormal lesions or masses. Patient does have erythema of the dorsum of both feet. I suspect this is probably a sequelae of his significant edema. Musculoskeletal: There is no joint swelling or tenderness or deformity. Extremities: There is no palpable calf tenderness Results - Labs CBC & BMP: 03/06/17 04:41 03/06/17 04:41 Lab Results: I have reviewed the past 24 hour labs
[2017-03-06 08:17] VITALS: BP 102/51
--- NOTE | 2017-03-06 08:30 | Discharge Summary ---
Hospital Course - Hospital Course Hospital Course: Progressively worsening edema that is probably multifactorial including splenomegaly and liver dysfunction related to myelodysplastic syndrome. 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 Thrombocytopenia secondary to myelodysplastic syndrome. COPD. Iron deficiency. Moderate degenerative arthritis. Hypokalemia Mr. Portillo has a history of myelodysplastic syndrome first diagnosed in August 2011. He was initially treated with hydroxyurea and tested for Ricardo 2 positivity. He is Ricardo 2 positive and he has been treated with Jakafi. He did not tolerate it well and it appeared to be less effective but I really think that what happened was the patient's myelodysplastic syndrome has worsened and that he simply has been noncompliant with his medications and and he is blaming them for side effects or actually progression of disease. Mr. Portillo was basically admitted for progressive debilitation due to myelodysplastic syndrome in combination with edema that was actually improving on Lasix. Problems with which we are currently dealing include: Progressively worsening edema that is probably multifactorial including splenomegaly and liver dysfunction related to myelodysplastic syndrome. Now improved. myelodysplastic syndrome: He has elected to proceed with Vidaza so I am ordering today. He feels better and wants to go home. The dose of Vidaza will be 135 mg subcu daily for 5 days.He received day #1 of 5 days or yesterday. 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 Hemoglobin 9.8 today following transfusion. Thrombocytopenia secondary to myelodysplastic syndrome. Platelet count 24,000 today. White cell count 23,000 with an absolute neutrophil count of 12,800. COPD. His COPD has improved. He has faint wheezing on expiration. Heart murmur: His 2D echocardiogram done March 02, 2017 demonstrates mitral valve sclerosis with regurgitation as well as aortic valve sclerosis without stenosis but with trace insufficiency. There is also tricuspid valve regurgitation. Moderate degenerative arthritis. Malnutrition, emaciation and cachexia:Serum Calcium 8.0 with serum albumin of 2.8. Hypokalemia Potassium 3.8 today. He remains extremely debilitated due to the fact that he has a long-term myelodysplastic syndrome and has been through treatments to include hydroxyurea and Jakafi. He has now been started on Vidaza. At least initially, plan to give it to him at a dose of 135 mg subcu daily for 5 days. It can be given for 7 days but he has been heavily pretreated. My plan is to repeat this chemotherapy every 4 weeks. We will plan to give the next dose at my office if at all possible, starting tomorrow and completing it March 09. Discharge Plan - Discharge Data Disposition: Disch To Home/Self Care Condition at Discharge: Guarded Discharge Diet: advance to your usual diet Activity: resume usual activities as tolerated Hygiene: no restrictions Weight Bearing at Discharge: weight bear as tolerated Driving: other Contact your physician if you experience:: fever over 101, Difficulty voiding, Redness or swelling, Nausea/Vomiting, Shortness of breath, Bleeding, pain uncontrolled by pain medications - Discharge Medications New Furosemide Inj [Lasix Inj] 40 mg IV BID DIURETIC vial Continue Prochlorperazine Tab [Compazine Tab] 5 mg PO Q4H PRN PRN Reason: Nausea/Vomiting Iron,Carbonyl/Ascorbic Acid [Icar-C Tablet] 1 each PO DAILY W/SUPPER Multivit-Min/FA/Lutein/Zeaxant [Icaps Mv Tablet] 1 each PO BID Discontinued Hydroxyurea 500 mg PO QAM Furosemide Tab [Lasix Tab] 40 mg PO DAILY PRN PRN Reason: FLUID RETENTION - Follow Up or Referral - Forms/Instructions Additional Discharge Instructions: Discharge today after Jessi. I will arrange for him to continue 5 days of March 07 - at my office. If it cannot be accomplished, have him return here for any today. CBC and red top tube weekly. Appointment to see me in 3 weeks with CBC, CMP, LDH. Exam - Constitutional Vitals: Period Temp Pulse Resp BP Sys/Parker Pulse Ox Last 24 Hr 97.7 F-99.2 F 66-92 18-20 102-123/46-62 90-96 Discharge Results Procedures and tests throughout hospitalization: Pending Orders 03/01/17 19:43 Blood Culture Stat 03/07/17 04:00 Comp Blood Count Auto Diff IN AM Comprehensive Metabolic Panel IN AM LDH [Lactate Dehydrogenase] IN AM 03/08/17 04:00 Comp Blood Count Auto Diff IN AM Comprehensive Metabolic Panel IN AM Labs on day of discharge: Labs from last 24 hours 03/06/17 03/06/17 03/06/17 04:41 04:41 04:41 WBC 23.0 H RBC 3.63 L Hgb 9.8 L Hct 32.6 L MCV 89.8 MCH 27 MCHC 30.1 L RDW 21.4 H Plt Count 24 L* Neut % (Auto) 55.7 Lymph % (Auto) 13.9 L Weston % (Auto) 7.6 Eos % (Auto) 0.0 Baso % (Auto) 1.0 H Neut # (Auto) 12.8 H Lymph # (Auto) 3.2 Weston # (Auto) 1.7 H Eos # (Auto) 0.0 Baso # (Auto) 0.2 Total Counted 100 Immature Gran % 21.8 Nucleated RBC % 4.4 Immature Gran # 5.01 Segmented Neutrophils 55 Band Neutrophils 17 H Lymphocytes 11 L Monocytes 12 Myelocytes 3 Promyelocytes 2 Nucleated RBCs 6 H Nucleated RBCs # 1.01 Platelet Estimate Decreased Polychromasia 1+ Hypochromasia 1+ Target Cells Slight Sodium 141 Potassium 3.8 Chloride 103 Carbon Dioxide 28 Anion Gap 13.8 BUN 30 H Creatinine 1.20 GFR Calculation 61 BUN/Creatinine Ratio 25.00 H Glucose 98 Calculated Osmolality 286.3 Calcium 8.0 L Total Bilirubin 2.10 H AST 35 ALT 24 Alkaline Phosphatase 134 H Lactate Dehydrogenase 1112 H Total Protein 6.4 Albumin 2.8 L Globulin 3.6 H Albumin/Globulin Ratio 0.7 L Prealbumin 10.2 L Preliminary micro results at discharge 03/01/17 19:43 Blood Culture - Preliminary Blood No growth at 3 days 03/01/17 19:43 Blood Culture - Preliminary Blood No growth at 3 days DS: Provider Date of admission: 03/01/17 23:18 Primary care physician: . No PCP Attending physician on admission: Bert Pugh MD Consults: 03/02/17 00:14 Consult to Case Mgmt/Social Srvs [CONS] Routine Reason for Case Mgmt/Social Srvs: Rehab Hospice Referral 03/02/17 01:25 Consult to Pastoral Services [CONS] Routine Comment: Pastoral Screen: Request [employer] Visit Pastoral Screen Source of Request: Other Other Source Requesting: Nursing 03/02/17 07:40 Consult to Physician [CONS] Routine Comment: patient known to you Consulting Provider: Ramirez Carrillo 03/06/17 08:03 Consult to Dietitian [CONS] Routine Reason for Dietitian: Diet Recommendations Supplements and/or Snacks Discharging clinician: Bert Pugh MD
[2017-03-06] MEDS: PANTOPRAZOLE 40 MG VIAL IV SCH (08:51)
[2017-03-06] MEDS: GRANISETRON 1 MG/1 ML VIAL IV SCH (08:51)
[2017-03-06] MEDS: FUROSEMIDE 20 MG/2 ML VIAL IV SCH (08:52)
[2017-03-06] MEDS: MULTIVITAMIN (OCUVITE) TABLET PO SCH (08:52)
[2017-03-06] MEDS: AZACITIDINE SUBCUT SCH (10:26)
[2017-03-06] MEDS: STERILE WATER SUBCUT SCH (10:26)
== END 2017-03-06 11:40 | disposition home health service (06) | DRG 811 ==
LOC: N.ED 18:33 → N.EDINP 23:18 → N.4E 23:54
PROVIDERS: ADMIT Specialist; ATTEND Specialist

== ENCOUNTER 2017-08-02 14:38 | Inpatient (IN) ==
[2017-08-02] MEDS ORDERED: SODIUM CHLORIDE 0.9% 1,000 ML IV STA (16:03)
[2017-08-02 16:41] LABS: Basophils # 1.4 10*3/uL (0.0-0.2); Basophils % 1.7 % (0.0-0.8); Eosinophils % 0.1 % (0.00-10.9); Hematocrit 25.1 VOL% (42.0-52.0); Hemoglobin 7.4 GM/DL (14.0-18.0); Immature Granulocytes % 20.9 %; Immature Granulocytes Absolute 16.63 #; Lymphocytes % 6.3 % (21.2-54.2); Mean Corpuscular HGB Conc 29.5 GM/DL (32-36); Mean Corpuscular Hemoglobin 28 PG (27-34); Mean Corpuscular Volume 95.4 FL (87-102); Monocytes # 26.1 10*3/uL (0.11-0.8); Monocytes % 32.8 % (1.7-12.7); NRBC # 16.47 10*3/uL; Neutrophils # 30.3 10*3/uL (1.4-7.4); Neutrophils % 38.2 % (38.7-73.9); Red Blood Count 2.63 MC/CUMM (3.8-5.5)
[2017-08-02 16:48] LABS: Platelet Count 33 T/CUMM (130-400); White Blood Count 79.4 T/CUMM (4-12)
[2017-08-02 16:51] LABS: INR 1.3; PT Patient Result 13.4 SECS; Partial Thromboplastin Time 35.5 SECS (0-40)
[2017-08-02 16:57] LABS: Albumin 2.5 G/DL (3.4-5.0); Bilirubin,Total 1.4 MG/DL (0.2-1.0); Osmolality,Calculated 283.4 MOS/KG (273-304); Potassium 4.1 MMOL/L (3.5-5.1); Total Protein 6.2 G/DL (6.4-8.3)
[2017-08-02] MEDS ORDERED: LOPERAMIDE 2 MG CAPSULE PO PRN ×2 (20:26)
[2017-08-02] MEDS ORDERED: chlorproMAZINE INJ 50 MG in SODIUM CHLORIDE 0.9% 100 ML IV PRN (20:26)
[2017-08-02] MEDS ORDERED: chlorproMAZINE 25 MG TABLET PO PRN (20:26)
[2017-08-02] MEDS ORDERED: diphenhydrAMINE CAP 25 MG CAPSULE PO PRN (20:26)
[2017-08-02] MEDS ORDERED: ALPRAZolam 0.25 MG TABLET PO PRN (20:26)
[2017-08-02] MEDS ORDERED: ALUMINUM/MAGNES/SIMETH MAX STR 30 ML UDCUP PO PRN (20:26)
[2017-08-02] MEDS ORDERED: PROMETHAZINE INJ 25 MG in SODIUM CHLORIDE 0.9% 50 ML IV PRN (20:26)
[2017-08-02] MEDS ORDERED: SODIUM CHLORIDE 0.9% 1,000 ML IV PRN (20:26)
[2017-08-02] MEDS ORDERED: ACETAMINOPHEN 325 MG TABLET PO PRN (20:26)
[2017-08-02] MEDS ORDERED: traMADol 50 MG TABLET PO PRN (20:26)
[2017-08-02] MEDS ORDERED: BENZTROPINE 2 MG/2 ML AMP IV PRN (20:26)
[2017-08-02] MEDS ORDERED: guaiFENesin 200 MG/10 ML UDCUP PO PRN (20:26)
[2017-08-02] MEDS ORDERED: chlorproMAZINE INJ 25 MG in SODIUM CHLORIDE 0.9% 100 ML IV PRN (20:26)
[2017-08-02] MEDS ORDERED: MYLANTA/LIDO VISC 2:1 300 ML BOTTLE SWISH/SPIT PRN (20:26)
[2017-08-02] MEDS ORDERED: LACTULOSE 20 GM/30 ML UDCUP PO PRN (20:26)
[2017-08-02] MEDS ORDERED: MYLANTA/LIDO VISC 2:1 300 ML BOTTLE SWISH/SWAL PRN (20:26)
[2017-08-02] MEDS ORDERED: MAGNESIUM HYDROXIDE SUSP 30 ML UDCUP PO PRN (20:26)
[2017-08-02 20:37] LABS: Band Neutrophils 12 % (0-10); Basophilic Stippling Few; Eosinophils 1 % (0-10); Hypochromasia 1+; Lymphocytes 10 % (20-55); Metamyelocytes 3 %; Myelocytes 4 %; Nucleated Red Blood Cells 4 (0-5); Ovalocytes Few; Platelet Estimate Decreased; Polychromasia Few; Reactive Lymphocytes Few; Segmented Neutrophils 34 % (50-85); Total Cells Counted 100
[2017-08-02] MEDS: SODIUM CHLORIDE 0.9% 1,000 ML IV SCH (20:51)
[2017-08-03] MEDS: TEMAZEPAM 7.5 MG CAPSULE PO PRN (00:04)
[2017-08-03 03:10] LABS: Apearance,Urine CLEAR (Clear); Bilirubin,Urine Negative (Negative); Blood, Urine Negative (Negative); Glucose,Urine (UA) Negative (Negative); Hyaline Casts,Urine 2 /LPF (0-3); Ketones,Urine Negative (Negative); Mucus,Urine Occasional /LPF (Occasional); Nitrite,Urine Negative (Negative); Protein,Urine Negative; RBC,Urine <1 /HPF (0-4); Squamous Epithelial Cell,Urine Occasional /HPF (0-10); Urine Color Yellow (Yellow); Urine Specific Gravity 1.011 (1.001-1.035); Urine Urobilinogen < 2.0 EU/DL (0.2-1.0); WBC,Urine <1 /HPF (0-6)
[2017-08-03] MEDS ORDERED: MECLIZINE 25 MG TABLET PO PRN (10:02)
[2017-08-03] MEDS ORDERED: NON-FORMULARY MEDICATION (Multivitamin [Multivitamins] 1 EACH) PO SCH (10:15)
[2017-08-03] MEDS: PANTOPRAZOLE 40 MG TABLET PO SCH ×2 (10:16→16:27)
[2017-08-03] MEDS: MULTIVITAMIN (CENTRUM) TABLET PO SCH (10:16)
[2017-08-03 11:26] LABS: Basophils # 1.5 10*3/uL (0.0-0.2); Hematocrit 29.8 VOL% (42.0-52.0); Hemoglobin 9.2 GM/DL (14.0-18.0); Immature Granulocytes % 18.5 %; Immature Granulocytes Absolute 14.14 #; Lymphocytes # 4.8 10*3/uL (1.4-4.0); Lymphocytes % 6.3 % (21.2-54.2); Mean Corpuscular HGB Conc 30.9 GM/DL (32-36); Mean Corpuscular Hemoglobin 29 PG (27-34); Mean Corpuscular Volume 94.9 FL (87-102); Monocytes # 26.7 10*3/uL (0.11-0.8); NRBC # 12.96 10*3/uL; Neutrophils # 29.1 10*3/uL (1.4-7.4); Neutrophils % 38.2 % (38.7-73.9); Red Blood Count 3.14 MC/CUMM (3.8-5.5); Red Cell Distribution Width 23.6 % (9.3-17.3)
[2017-08-03 11:28] LABS: Platelet Count 30 T/CUMM (130-400); White Blood Count 76.3 T/CUMM (4-12)
[2017-08-03 11:45] LABS: Band Neutrophils 8 % (0-10); Lymphocytes 14 % (20-55); Metamyelocytes 4 %; Myelocytes 1 %; Nucleated Red Blood Cells 38 (0-5); Promyelocytes 3 %; Segmented Neutrophils 40 % (50-85); Total Cells Counted 100
[2017-08-03 11:46] LABS: Anisocytosis 1+; Hypochromasia 1+; Microcytosis 1+; Platelet Estimate Decreased
[2017-08-03 11:47] LABS: Acanthocytes Few; Ovalocytes Slight; Poikilocytosis 1+; Spherocytes Slight; Tear Drop Cells Slight
[2017-08-03] MEDS: SODIUM CHLORIDE 0.9% 1,000 ML IV SCH (14:16)
[2017-08-04] MEDS: TEMAZEPAM 7.5 MG CAPSULE PO PRN ×2 (00:59→23:59)
[2017-08-04 07:03] LABS: Basophils # 1.4 10*3/uL (0.0-0.2); Basophils % 1.9 % (0.0-0.8); Eosinophils # 0.1 10*3/uL (0.0-0.87); Eosinophils % 0.1 % (0.00-10.9); Hematocrit 29.8 VOL% (42.0-52.0); Hemoglobin 9.2 GM/DL (14.0-18.0); Immature Granulocytes % 21.9 %; Immature Granulocytes Absolute 16.15 #; Lymphocytes # 3.8 10*3/uL (1.4-4.0); Lymphocytes % 5.2 % (21.2-54.2); Mean Corpuscular HGB Conc 30.9 GM/DL (32-36); Mean Corpuscular Hemoglobin 29 PG (27-34); Mean Corpuscular Volume 94.6 FL (87-102); Monocytes # 22.3 10*3/uL (0.11-0.8); Monocytes % 30.2 % (1.7-12.7); NRBC # 13.32 10*3/uL; Neutrophils % 40.7 % (38.7-73.9); Red Blood Count 3.15 MC/CUMM (3.8-5.5)
[2017-08-04 07:07] LABS: White Blood Count 73.7 T/CUMM (4-12)
[2017-08-04 07:08] LABS: Platelet Count 26 T/CUMM (130-400)
[2017-08-04 07:38] LABS: Albumin 2.3 G/DL (3.4-5.0); Bilirubin,Total 1.9 MG/DL (0.2-1.0); Calcium 7.3 MG/DL (8.5-10.1); Osmolality,Calculated 290.7 MOS/KG (273-304); Potassium 3.6 MMOL/L (3.5-5.1); Total Protein 5.5 G/DL (6.4-8.3)
[2017-08-04 08:13] LABS: Band Neutrophils 14 % (0-10); Lymphocytes 6 % (20-55); Myelocytes 6 %; Nucleated Red Blood Cells 22 (0-5); Segmented Neutrophils 43 % (50-85); Total Cells Counted 100
[2017-08-04 08:14] LABS: Giant Platelets Few; Macrocytosis Slight; Platelet Estimate Decreased; Polychromasia Slight
[2017-08-04 08:15] LABS: Atypical Lymphocytes Few; Hypochromasia Slight
[2017-08-04] MEDS: PANTOPRAZOLE 40 MG TABLET PO SCH ×2 (09:11→16:40)
[2017-08-04] MEDS: MULTIVITAMIN (CENTRUM) TABLET PO SCH (09:11)
[2017-08-04] MEDS ORDERED: SODIUM CHLORIDE 0.9% 1,000 ML IV PRN (12:42)
[2017-08-04] MEDS: SODIUM CHLORIDE 0.9% 1,000 ML IV SCH (16:39)
[2017-08-04] MEDS: ONDANSETRON 4 MG/2 ML VIAL IV PRN (23:58)
[2017-08-05] MEDS: SODIUM CHLORIDE 0.9% 1,000 ML IV SCH ×3 (00:02→12:06)
[2017-08-05 06:25] LABS: Basophils # 2.3 10*3/uL (0.0-0.2); Basophils % 2.9 % (0.0-0.8); Eosinophils # 0.1 10*3/uL (0.0-0.87); Eosinophils % 0.1 % (0.00-10.9); Hematocrit 35.6 VOL% (42.0-52.0); Hemoglobin 11.2 GM/DL (14.0-18.0); Immature Granulocytes % 22.6 %; Immature Granulocytes Absolute 18.21 #; Mean Corpuscular HGB Conc 31.5 GM/DL (32-36); Mean Corpuscular Hemoglobin 29 PG (27-34); Mean Corpuscular Volume 93.2 FL (87-102); Monocytes % 32.2 % (1.7-12.7); NRBC # 14.58 10*3/uL; Neutrophils # 30.2 10*3/uL (1.4-7.4); Neutrophils % 37.2 % (38.7-73.9); Red Blood Count 3.82 MC/CUMM (3.8-5.5); Red Cell Distribution Width 23.4 % (9.3-17.3)
[2017-08-05 06:30] LABS: Platelet Count 26 T/CUMM (130-400); White Blood Count 80.7 T/CUMM (4-12)
[2017-08-05 07:07] LABS: Albumin 2.4 G/DL (3.4-5.0); Bilirubin,Total 2.2 MG/DL (0.2-1.0); Calcium 7.5 MG/DL (8.5-10.1); Osmolality,Calculated 290.7 MOS/KG (273-304); Potassium 3.7 MMOL/L (3.5-5.1); Total Protein 5.6 G/DL (6.4-8.3)
[2017-08-05 07:33] LABS: Band Neutrophils 12 % (0-10); Burr Cells Slight; Hypochromasia 1+; Lymphocytes 9 % (20-55); Myelocytes 2 %; Nucleated Red Blood Cells 36 (0-5); Ovalocytes Slight; Platelet Estimate Decreased; Segmented Neutrophils 47 % (50-85); Total Cells Counted 100
[2017-08-05 07:34] LABS: Smudge Cells Few
[2017-08-05] MEDS: ONDANSETRON 4 MG/2 ML VIAL IV PRN (08:17)
[2017-08-05] MEDS ORDERED: FUROSEMIDE 40 MG/4 ML VIAL IV ONE (11:22)
[2017-08-05] MEDS: PANTOPRAZOLE 40 MG TABLET PO SCH ×2 (11:36→17:00)
[2017-08-05] MEDS: MULTIVITAMIN (CENTRUM) TABLET PO SCH (11:37)
[2017-08-05] MEDS: TEMAZEPAM 7.5 MG CAPSULE PO PRN (22:14)
[2017-08-06] MEDS: SODIUM CHLORIDE 0.9% 1,000 ML IV SCH ×3 (01:50→15:16)
[2017-08-06 05:52] LABS: Basophils # 1.8 10*3/uL (0.0-0.2); Basophils % 2.2 % (0.0-0.8); Hematocrit 34.3 VOL% (42.0-52.0); Hemoglobin 10.7 GM/DL (14.0-18.0); Immature Granulocytes % 22.9 %; Immature Granulocytes Absolute 18.57 #; Lymphocytes # 5.6 10*3/uL (1.4-4.0); Mean Corpuscular HGB Conc 31.2 GM/DL (32-36); Mean Corpuscular Hemoglobin 29 PG (27-34); Monocytes # 24.9 10*3/uL (0.11-0.8); Monocytes % 30.6 % (1.7-12.7); NRBC # 12.17 10*3/uL; Neutrophils # 30.2 10*3/uL (1.4-7.4); Neutrophils % 37.3 % (38.7-73.9); Red Blood Count 3.65 MC/CUMM (3.8-5.5); Red Cell Distribution Width 23.3 % (9.3-17.3)
[2017-08-06 05:58] LABS: Platelet Count 29 T/CUMM (130-400); White Blood Count 81.1 T/CUMM (4-12)
[2017-08-06 06:26] LABS: Albumin 2.3 G/DL (3.4-5.0); Bilirubin,Total 1.8 MG/DL (0.2-1.0); Calcium 7.6 MG/DL (8.5-10.1); Osmolality,Calculated 290.8 MOS/KG (273-304); Potassium 3.7 MMOL/L (3.5-5.1); Total Protein 5.7 G/DL (6.4-8.3)
[2017-08-06 06:31] LABS: Band Neutrophils 11 % (0-10); Lymphocytes 9 % (20-55); Metamyelocytes 2 %; Myelocytes 2 %; Nucleated Red Blood Cells 25 (0-5); Promyelocytes 4 %; Segmented Neutrophils 47 % (50-85); Total Cells Counted 100
[2017-08-06 06:33] LABS: Acanthocytes Few; Hypochromasia 1+; Microcytosis 1+; Polychromasia Slight
[2017-08-06 06:34] LABS: Ovalocytes Slight; Platelet Estimate Decreased; Tear Drop Cells Slight
[2017-08-06] MEDS: MULTIVITAMIN (CENTRUM) TABLET PO SCH (08:27)
[2017-08-06] MEDS: PANTOPRAZOLE 40 MG TABLET PO SCH ×2 (08:27→16:47)
[2017-08-06] MEDS ORDERED: JAKAFI 5 MG PO SCH (09:00)
[2017-08-06] MEDS ORDERED: FUROSEMIDE 40 MG/4 ML VIAL IV ONE (09:42)
[2017-08-06] MEDS: JAKAFI 5 MG PO SCH ×2 (14:44→21:05)
[2017-08-06] MEDS: TEMAZEPAM 7.5 MG CAPSULE PO PRN (22:30)
[2017-08-07] MEDS: SODIUM CHLORIDE 0.9% 1,000 ML IV SCH ×2 (04:42→12:42)
[2017-08-07 05:19] LABS: Basophils # 1.6 10*3/uL (0.0-0.2); Basophils % 2.1 % (0.0-0.8); Eosinophils # 0.1 10*3/uL (0.0-0.87); Eosinophils % 0.1 % (0.00-10.9); Hematocrit 32.7 VOL% (42.0-52.0); Hemoglobin 10.3 GM/DL (14.0-18.0); Immature Granulocytes % 25.8 %; Immature Granulocytes Absolute 20.01 #; Lymphocytes # 5.8 10*3/uL (1.4-4.0); Lymphocytes % 7.4 % (21.2-54.2); Mean Corpuscular HGB Conc 31.5 GM/DL (32-36); Mean Corpuscular Hemoglobin 29 PG (27-34); Mean Corpuscular Volume 93.4 FL (87-102); Monocytes % 25.8 % (1.7-12.7); NRBC # 8.64 10*3/uL; Neutrophils % 38.8 % (38.7-73.9); Red Cell Distribution Width 22.9 % (9.3-17.3)
[2017-08-07 05:22] LABS: White Blood Count 77.5 T/CUMM (4-12)
[2017-08-07 05:23] LABS: Platelet Count 33 T/CUMM (130-400)
[2017-08-07 05:51] LABS: Band Neutrophils 5 % (0-10); Eosinophils 3 % (0-10); Lymphocytes 11 % (20-55); Metamyelocytes 2 %; Myelocytes 1 %; Nucleated Red Blood Cells 21 (0-5); Promyelocytes 2 %; Segmented Neutrophils 48 % (50-85); Total Cells Counted 100
[2017-08-07 05:52] LABS: Hypochromasia 1+; Microcytosis 1+; Platelet Estimate Decreased
[2017-08-07 05:53] LABS: Acanthocytes Few; Ovalocytes Slight; Polychromasia Slight
[2017-08-07 05:57] LABS: Albumin 2.2 G/DL (3.4-5.0); Bilirubin,Total 1.7 MG/DL (0.2-1.0); Calcium 7.6 MG/DL (8.5-10.1); Osmolality,Calculated 293.7 MOS/KG (273-304); Potassium 3.8 MMOL/L (3.5-5.1); Total Protein 5.5 G/DL (6.4-8.3)
[2017-08-07] MEDS: PANTOPRAZOLE 40 MG TABLET PO SCH (08:39)
[2017-08-07] MEDS: MULTIVITAMIN (CENTRUM) TABLET PO SCH (08:39)
[2017-08-07] MEDS: JAKAFI 5 MG PO SCH (08:39)
[2017-08-07 12:32] VITALS: BP 107/68
== END 2017-08-07 13:42 | disposition swing bed (61) | DRG 808 ==
LOC: N.ED 14:38 → N.EDINP 17:37 → N.4E 18:53
PROVIDERS: ADMIT Specialist; ATTEND Specialist

== ENCOUNTER 2017-10-30 14:50 | Inpatient (IN) ==
[2017-10-30 17:25] LABS: Basophils # 1.3 10*3/uL (0.0-0.2); Basophils % 1.5 % (0.0-0.8); Eosinophils # 0.2 10*3/uL (0.0-0.87); Eosinophils % 0.2 % (0.00-10.9); Hematocrit 20.4 VOL% (42.0-52.0); Immature Granulocytes % 21.1 %; Immature Granulocytes Absolute 17.92 #; Lymphocytes # 5.2 10*3/uL (1.4-4.0); Lymphocytes % 6.1 % (21.2-54.2); Mean Corpuscular HGB Conc 28.9 GM/DL (32-36); Mean Corpuscular Hemoglobin 30 PG (27-34); Mean Corpuscular Volume 104.1 FL (87-102); Monocytes # 14.6 10*3/uL (0.11-0.8); Monocytes % 17.2 % (1.7-12.7); NRBC # 13.97 10*3/uL; Neutrophils # 45.7 10*3/uL (1.4-7.4); Neutrophils % 53.9 % (38.7-73.9); Red Blood Count 1.96 MC/CUMM (3.8-5.5); Red Cell Distribution Width 24.1 % (9.3-17.3)
[2017-10-30 17:34] LABS: Hemoglobin 5.9 GM/DL (14.0-18.0); Platelet Count 27 T/CUMM (130-400)
[2017-10-30 17:51] LABS: Bilirubin,Total 1.5 MG/DL (0.2-1.0); Calcium 7.7 MG/DL (8.5-10.1); Osmolality,Calculated 285.7 MOS/KG (273-304); Potassium 3.9 MMOL/L (3.5-5.1); Total Protein 6.7 G/DL (6.4-8.3); Uric Acid 13.2 MG/DL (3.5-7.2)
[2017-10-30] MEDS ORDERED: chlorproMAZINE 25 MG TABLET PO PRN (18:36)
[2017-10-30] MEDS ORDERED: traMADol 50 MG TABLET PO PRN (18:36)
[2017-10-30] MEDS ORDERED: BENZTROPINE 2 MG/2 ML AMP IV PRN (18:36)
[2017-10-30] MEDS ORDERED: TEMAZEPAM 7.5 MG CAPSULE PO PRN (18:36)
[2017-10-30] MEDS ORDERED: guaiFENesin 200 MG/10 ML UDCUP PO PRN (18:36)
[2017-10-30] MEDS ORDERED: ACETAMINOPHEN 325 MG TABLET PO PRN (18:36)
[2017-10-30] MEDS ORDERED: diphenhydrAMINE CAP 25 MG CAPSULE PO PRN (18:36)
[2017-10-30] MEDS ORDERED: chlorproMAZINE INJ 50 MG in SODIUM CHLORIDE 0.9% 100 ML IV PRN (18:36)
[2017-10-30] MEDS ORDERED: LACTULOSE 20 GM/30 ML UDCUP PO PRN (18:36)
[2017-10-30] MEDS ORDERED: MYLANTA/LIDO VISC 2:1 300 ML BOTTLE SWISH/SPIT PRN (18:36)
[2017-10-30] MEDS ORDERED: ALPRAZolam 0.25 MG TABLET PO PRN (18:36)
[2017-10-30] MEDS ORDERED: MAGNESIUM HYDROXIDE SUSP 30 ML UDCUP PO PRN (18:36)
[2017-10-30] MEDS ORDERED: chlorproMAZINE INJ 25 MG in SODIUM CHLORIDE 0.9% 100 ML IV PRN (18:36)
[2017-10-30] MEDS ORDERED: PROMETHAZINE INJ 25 MG in SODIUM CHLORIDE 0.9% 50 ML IV PRN (18:36)
[2017-10-30] MEDS ORDERED: ALUMINUM/MAGNES/SIMETH MAX STR 30 ML UDCUP PO PRN (18:36)
[2017-10-30] MEDS ORDERED: MYLANTA/LIDO VISC 2:1 300 ML BOTTLE SWISH/SWAL PRN (18:36)
[2017-10-30] MEDS ORDERED: LOPERAMIDE 2 MG CAPSULE PO PRN ×2 (18:36)
[2017-10-30 19:26] LABS: Band Neutrophils 8 % (0-10); Eosinophils 1 % (0-10); Hypochromasia 1+; Lymphocytes 8 % (20-55); Metamyelocytes 2 %; Myelocytes 1 %; Nucleated Red Blood Cells 5 (0-5); Promyelocytes 3 %; Segmented Neutrophils 71 % (50-85); Total Cells Counted 100
[2017-10-30 19:27] LABS: Microcytosis 1+; Platelet Estimate Decreased; Polychromasia Few
[2017-10-30] MEDS: ONDANSETRON 4 MG/2 ML VIAL IV PRN (19:39)
[2017-10-30] MEDS: DEXT 5% NACL 0.45% KCL 20 MEQ 20 MEQ/1,000 ML BAG IV SCH (19:45)
[2017-10-30] MEDS ORDERED: MECLIZINE 25 MG TABLET PO PRN (20:08)
[2017-10-31] MEDS: DEXT 5% NACL 0.45% KCL 20 MEQ 20 MEQ/1,000 ML BAG IV SCH ×4 (01:05→22:13)
[2017-10-31] MEDS: ONDANSETRON 4 MG/2 ML VIAL IV PRN ×2 (02:05→07:47)
[2017-10-31] MEDS: MULTIVITAMIN (CENTRUM) TABLET PO SCH (08:35)
[2017-10-31] MEDS: POTASSIUM CHLORIDE 10 MEQ TABLET PO SCH (08:36)
[2017-10-31] MEDS: PANTOPRAZOLE 40 MG TABLET PO SCH ×2 (08:36→15:58)
[2017-10-31] MEDS: FUROSEMIDE 40 MG TABLET PO SCH ×2 (08:36→15:57)
[2017-10-31 10:47] LABS: Basophils # 1.7 10*3/uL (0.0-0.2); Basophils % 1.8 % (0.0-0.8); Eosinophils # 0.5 10*3/uL (0.0-0.87); Eosinophils % 0.5 % (0.00-10.9); Hematocrit 26.1 VOL% (42.0-52.0); Hemoglobin 8.4 GM/DL (14.0-18.0); Immature Granulocytes % 1.8 %; Immature Granulocytes Absolute 1.64 #; Lymphocytes # 67.4 10*3/uL (1.4-4.0); Lymphocytes % 72.2 % (21.2-54.2); Mean Corpuscular HGB Conc 32.2 GM/DL (32-36); Mean Corpuscular Hemoglobin 31 PG (27-34); Monocytes # 17.6 10*3/uL (0.11-0.8); Monocytes % 18.9 % (1.7-12.7); NRBC # 16.38 10*3/uL; Neutrophils # 4.6 10*3/uL (1.4-7.4); Neutrophils % 4.8 % (38.7-73.9); Red Blood Count 2.69 MC/CUMM (3.8-5.5); Red Cell Distribution Width 20.9 % (9.3-17.3)
[2017-10-31 11:02] LABS: White Blood Count 93.4 T/CUMM (4-12)
[2017-10-31 11:03] LABS: Platelet Count 22 T/CUMM (130-400)
[2017-10-31 11:27] LABS: Albumin 2.8 G/DL (3.4-5.0); Bilirubin,Total 1.6 MG/DL (0.2-1.0); Calcium 7.5 MG/DL (8.5-10.1); Potassium 4.8 MMOL/L (3.5-5.1); Total Protein 6.7 G/DL (6.4-8.3)
[2017-10-31] MEDS ORDERED: SODIUM CHLORIDE 0.9% 1,000 ML IV PRN (11:32)
[2017-10-31 11:35] LABS: Band Neutrophils 28 % (0-10); Eosinophils 1 % (0-10); Lymphocytes 5 % (20-55); Metamyelocytes 1 %; Myelocytes 4 %; Nucleated Red Blood Cells 15 (0-5); Promyelocytes 1 %; Segmented Neutrophils 49 % (50-85); Total Cells Counted 100
[2017-10-31 11:37] LABS: Basophilic Stippling Few
[2017-10-31 11:38] LABS: Hypochromasia 1+
[2017-10-31 11:39] LABS: Anisocytosis 1+; Polychromasia Slight
[2017-10-31 11:40] LABS: Platelet Estimate Decreased
[2017-10-31 11:46] LABS: Acanthocytes Few
[2017-10-31 11:50] LABS: Elliptocytes Few; Microcytosis 1+
[2017-11-01] MEDS ORDERED: FUROSEMIDE 40 MG/4 ML VIAL IV ONE (00:30)
[2017-11-01] MEDS: DEXT 5% NACL 0.45% KCL 20 MEQ 20 MEQ/1,000 ML BAG IV SCH ×2 (04:49→09:00)
[2017-11-01 05:03] LABS: Basophils # 2.2 10*3/uL (0.0-0.2); Basophils % 2.1 % (0.0-0.8); Eosinophils # 1.1 10*3/uL (0.0-0.87); Hematocrit 30.6 VOL% (42.0-52.0); Immature Granulocytes Absolute 3.19 #; Lymphocytes # 71.1 10*3/uL (1.4-4.0); Lymphocytes % 67.7 % (21.2-54.2); Mean Corpuscular HGB Conc 32.7 GM/DL (32-36); Mean Corpuscular Hemoglobin 31 PG (27-34); Monocytes # 19.3 10*3/uL (0.11-0.8); Monocytes % 18.4 % (1.7-12.7); NRBC # 19.05 10*3/uL; Neutrophils # 8.2 10*3/uL (1.4-7.4); Neutrophils % 7.8 % (38.7-73.9); Red Blood Count 3.22 MC/CUMM (3.8-5.5); Red Cell Distribution Width 20.2 % (9.3-17.3)
[2017-11-01 05:07] LABS: Platelet Count 24 T/CUMM (130-400)
[2017-11-01 05:43] LABS: Albumin 3.1 G/DL (3.4-5.0); Bilirubin,Total 2.1 MG/DL (0.2-1.0); Calcium 7.6 MG/DL (8.5-10.1); Total Protein 6.7 G/DL (6.4-8.3)
[2017-11-01 06:37] LABS: Band Neutrophils 24 % (0-10); Eosinophils 1 % (0-10); Lymphocytes 5 % (20-55); Metamyelocytes 5 %; Myelocytes 3 %; Nucleated Red Blood Cells 19 (0-5); Segmented Neutrophils 56 % (50-85); Total Cells Counted 100
[2017-11-01 06:38] LABS: Polychromasia 1+
[2017-11-01 06:39] LABS: Anisocytosis 2+; Poikilocytosis 1+
[2017-11-01] MEDS: POTASSIUM CHLORIDE 10 MEQ TABLET PO SCH (08:31)
[2017-11-01] MEDS: FUROSEMIDE 40 MG TABLET PO SCH (08:32)
[2017-11-01] MEDS: MULTIVITAMIN (CENTRUM) TABLET PO SCH (08:32)
[2017-11-01 12:33] VITALS: BP 109/60
[2017-11-01 13:22] LABS: Apearance,Urine Slightly Hazy (Clear); Bacteria,Urine Occasional /HPF (Few); Bilirubin,Urine Negative (Negative); Blood, Urine Negative (Negative); Glucose,Urine (UA) Negative (Negative); Hyaline Casts,Urine 10 /LPF (0-3); Ketones,Urine Negative (Negative); Mucus,Urine Occasional /LPF (Occasional); Nitrite,Urine Negative (Negative); Protein,Urine Negative; RBC,Urine <1 /HPF (0-4); Squamous Epithelial Cell,Urine Occasional /HPF (0-10); Urine Color Yellow (Yellow); Urine Specific Gravity 1.008 (1.001-1.035); Urine Urobilinogen < 2.0 EU/DL (0.2-1.0); WBC,Urine 2 /HPF (0-6)
== END 2017-11-01 14:00 | disposition home health service (06) | DRG 811 ==
LOC: N.4E
PROVIDERS: ADMIT Specialist; ATTEND Specialist